=== PATIENT | female | born 1980 | race Hispanic/Latino ===

== ENCOUNTER → 2021-04-13 10:19 | Outpatient (CLI) | payer OTHER, SELFPAY ==
--- NOTE | ~2021-04-13 | MM_ITS ---
EXAMINATION: MM screening aaron BI w michael HISTORY: Screening TECHNIQUE: Craniocaudal and mediolateral oblique 3-D tomosynthesis images were obtained and synthetic 2-D images were generated. CAD analysis was submitted and interpreted. COMPARISON: No prior mammogram is available for comparison at this institution. BREAST PARENCHYMAL COMPOSITION: The breasts are heterogeneously dense, which may obscure small masses . FINDINGS: There is focal asymmetry in the lower inner quadrant of the left breast. There are no suspi cious masses, calcifications or architectural distortion in the left breast to suggest malignancy. IMPRESSION: 1. Focal left breast asymmetry, lower inner quadrant. 2. Additional mammographic views and possible breast ultrasound are recommended. BI-RADS Category 0: Incomplete: Needs additional imaging evaluation. Reviewed, dictated and finalized at location A. IMPRESSION: 1. Focal left breast asymmetry, lower inner quadrant. 2. Additional mammographic views and possible breast ultrasound are recommended . BI-RADS Category 0: Incomplete: Needs additional imaging evaluation.
== END ==
PROVIDERS: Visit Provider Obstetrics & Gynecology
DX: Z12.31 Encounter for screening mammogram for malignant neoplasm of breast (principal); R92.8 Other abnormal and inconclusive findings on diagnostic imaging of breast
CPT/HCPCS: 77063; 77067

== ENCOUNTER → 2021-05-12 09:35 | Outpatient (CLI) | payer OTHER, SELFPAY ==
--- NOTE | ~2021-05-12 | MMUS_ITS ---
EXAMINATION: MM diagnostic aaron LT w michael, US breast LT complete HISTORY: Focal left breast asymmetry reported in lower inner quadrant of left breast on 04/2021 scre ening mammogram TECHNIQUE: Additional 3-D tomosynthesis images of the left breast were performed and synthetic 2-D im ages were generated. CAD analysis was submitted and interpreted. High resolution complete left breast ultrasound including all 4 quadrants and subareolar area was performed. COMPARISON: 04/13/2021 bilateral screening mammogram 03/02/2011 bilateral diagnostic mammogram and left breast ultrasound FINDINGS: MAMMOGRAPHIC FINDINGS: There is architectural distortion in the upper mid to outer anterior left breast (ML Tomosynthesis im age 27/63). There is asymmetric density in the mid inner left breast (craniocaudal Tomosynthesis image 31/60). ULTRASOUND: 12:00 2 cm from nipple: There is an irregular parallel oval hypoechoic mass measuring 5.9 x 3.6 x 6.4 mm, with no posterior shadowing, with minimal adjacent vascularity on color flow imaging. Ultrasound -guided biopsy is recommended. 2:00 3 cm from nipple: 2.6 x 3.8 x 4.2 mm cyst 8:00 5 cm from nipple: Parallel 3.3 x 2 x 3.1 mm hypoechoic lesion without internal vascularity or po sterior shadowing 9:00 3 cm from nipple: 2.2 x 3.4 mm mildly irregular incompletely circumscribed hypoechoic lesion; ul trasound-guided biopsy is recommended 11:00 1 cm from nipple: Similar 3.5 x 3.9 mm incompletely circumscribed irregular hypoechoic lesion; ultrasound-guided biopsy is recommended. None of the above lesions were identified on 03/02/2011 complete left breast ultrasound examination. IMPRESSION: 1. 3 indeterminate hypoechoic lesions: 12:00 2 cm from nipple, 9:00 3 cm from nipple at 11:00 1 cm fr om nipple 2. Ultrasound-guided biopsy of these 3 lesions is recommended. BI-RADS category 4, suspicious findings. Kayleen, Assistant Professor Of Anthropology to Dr. Nicko Luong, was notified by telephone by Dr. Ham of the findings an d ultrasound guided biopsy recommendation on 05/12/2021 at 1038 hours. Reviewed, dictated and finalized at location A. R INSPECTOR IMPRESSION: 1. 3 indeterminate hypoechoic lesions: 12:00 2 cm from nipple, 9:00 3 cm from n ipple at 11:00 1 cm from nipple 2. Ultrasound-guided biopsy of these 3 lesions is recommended. BI-RADS category 4, suspicious findings. Kayleen, Assistant Professor Of Anthropology to Dr. Nicko Luong, was notified by telephone by Dr. Shailesh ignacio of the findings and ultrasound guided biopsy recommendation on 05/12/2021 at 1038 hours.
== END ==
PROVIDERS: Visit Provider Obstetrics & Gynecology
DX: R92.8 Other abnormal and inconclusive findings on diagnostic imaging of breast (principal)
CPT/HCPCS: 76641; 77061; 77065; G0279

== ENCOUNTER 2021-06-01 10:03 | Outpatient (CLI) | payer OTHER, SELFPAY ==
--- NOTE | ~2021-06-01 | MMUS_ITS ---
EXAMINATION: US breast biopsy LT w image, MM post biopsy invasive LT DATE: 06/01/2021 11:12 (accession [id number]), 06/01/2021 11:15 (accession [id number]) INDICATION: Indeterminate left breast masses at diagnostic evaluation. Ultrasound-guided core biopsy is requested to evaluate for malignancy. TECHNIQUE AND FINDINGS: Real-time scanning, the mass is recommended for biopsy at the 9:00 and 11:00 locations are suggestive of cysts. There was decided to biopsy the mass at the 12:00 location. The risks and potential benefi ts of the procedure were discussed with the patient including bleeding and. A time out was performed. The skin of the left breast was prepared and draped in usual sterile fashion. 1% lidocaine was used for superficial anesthesia. 1% lidocaine with epinephrine was used for deep anesthesia. A vacuum-assisted biopsy gun needle was advanced through to the outer edge of the region of interest from a lateral approach utilizing sonographic guidance. A total of three tissue core samples were obt ained through the lesion. A tissue marker clip was then placed at the biopsy site. Hemostasis was ach ieved. A sterile bandage was applied. The patient tolerated procedure well and there was no evidence of immediate complication. The patient was given verbal instructions to return to the Emergency Department in the event of severe breast pa in or rapid breast enlargement. A two view left breast mammogram was obtained to document tissue hilary er clip placement. IMPRESSION: 1. Successful ultrasound-guided vacuum-assisted biopsy of left breast mass with tissue marker placeme nt. 2. Follow-up targeted left breast ultrasound in six months is recommended for the mass is identified at the 9:00 and 11:00 locations. Reviewed, dictated and finalized at location A. NCIAL OPERATIONS CLERK IMPRESSION: 1. Successful ultrasound-guided vacuum-assisted biopsy of left breast mass with tissue marker placement. 2. Follow-up targeted left breast ultrasound in six months is recommended for t he mass is identified at the 9:00 and 11:00 locations.
== END 2021-06-01 10:04 | disposition home or self-care (01) ==
PROVIDERS: Visit Provider Surgery
DX: R92.8 Other abnormal and inconclusive findings on diagnostic imaging of breast (principal)
CPT/HCPCS: 19083; 88305; 88342; A4648

== ENCOUNTER → 2022-04-19 10:28 | Outpatient (CLI) | payer OTHER, SELFPAY ==
--- NOTE | ~2022-04-19 | MM_ITS ---
EXAMINATION: MM screening aaron BI w michael HISTORY: Screening mammogram TECHNIQUE: Craniocaudal and mediolateral oblique 3-D tomosynthesis images were obtained and synthetic 2-D images were generated. CAD analysis was submitted and interpreted. COMPARISON: 06/01/2021 left ultrasound guided breast biopsy 06/08/2021 diagnostic left mammogram and complete left breast ultrasound 04/2021 bilateral screening mammogram 03/02/2011 bilateral diagnostic mammography and left breast ultrasound BREAST PARENCHYMAL COMPOSITION: The breasts are heterogeneously dense, which may obscure small masses . FINDINGS: Stable fibroglandular asymmetry since 03/02/2011. Biopsy marker on the left; history of recent benign left breast biopsy. There is no evidence of suspicious mass, calcification, or architectural distortion to suggest malig augie in either breast. There has been no suspicious interval change. IMPRESSION: 1. No mammographic evidence of malignancy. 2. Recommend routine screening mammography in one year. BIRADS Category 2: Benign Reviewed, dictated and finalized at location A. NUE CYCLE SPECIALIST
== END ==
PROVIDERS: PCP Obstetrics & Gynecology; Visit Provider Obstetrics & Gynecology
DX: Z12.31 Encounter for screening mammogram for malignant neoplasm of breast (principal)
CPT/HCPCS: 77063; 77067

== ENCOUNTER 2024-05-11 13:27 | Outpatient (CLI) | payer OTHER, SELFPAY ==
--- NOTE | ~2024-05-11 | CT_ITS ---
EXAMINATION: CT soft tissue neck wo con DATE: 05/11/2024 13:44 INDICATION: Dysphagia, unspecified. TECHNIQUE: Computed tomography (CT) of the neck was performed without intravenous contrast. Automated exposure control and iterative reconstruction technique were employed. The dose-length product was 3 48.42 mGy-cm. COMPARISON: None FINDINGS: There are no pathologically enlarged lymph nodes. There is a right posterior tracheal diver ticulum. The thyroid demonstrates heterogeneous attenuation. There is mild cervical spondylosis. IMPRESSION: 1. No etiology for the patient's symptoms. Reviewed, dictated and finalized at location A. FIREMAN
== END 2024-05-11 13:28 | disposition home or self-care (01) ==
LOC: MICIMG 13:28
PROVIDERS: PCP Nurse Practitioner Family; Visit Provider Nurse Practitioner Family
DX: R13.10 Dysphagia, unspecified (principal)
CPT/HCPCS: 70490

== ENCOUNTER 2024-05-11 13:28 | Outpatient (CLI) | payer OTHER, SELFPAY ==
--- NOTE | ~2024-05-11 | MM_ITS ---
EXAMINATION: MM screening aaron BI w michael HISTORY: Screening TECHNIQUE: Craniocaudal and mediolateral oblique 3-D tomosynthesis images were obtained and synthetic 2-D images were generated. CAD analysis was submitted and interpreted. COMPARISON: Comparison to multiple prior studies sequentially, with oldest reviewed study dated 09/2020. BREAST PARENCHYMAL COMPOSITION: Dense: The breasts are heterogeneously dense, which may obscure small masses FINDINGS: There is a developing asymmetry laterally in the right breast on CC view. There is a radiol ucent mass which is new in the lower inner quadrant of the left breast, posterior third. IMPRESSION: 1. Developing right breast asymmetry and left breast mass. 2. Additional mammographic views and possible breast ultrasound are recommended. BI-RADS Category 0: Incomplete: Needs additional imaging evaluation. Reviewed, dictated and finalized at location B. EDUCATOR IMPRESSION: 1. Developing right breast asymmetry and left breast mass. 2. Additional mammographic views and possible breast ultrasound are recommended . BI-RADS Category 0: Incomplete: Needs additional imaging evaluation.
== END 2024-05-11 13:29 | disposition home or self-care (01) ==
LOC: MICIMG 13:29
PROVIDERS: PCP Obstetrics & Gynecology; Visit Provider Obstetrics & Gynecology
DX: Z12.31 Encounter for screening mammogram for malignant neoplasm of breast (principal); N64.89 Other specified disorders of breast
CPT/HCPCS: 77063; 77067

== ENCOUNTER 2024-08-28 08:47 | Outpatient (CLI) | payer OTHER, SELFPAY ==
--- NOTE | ~2024-08-28 | MMUS_ITS ---
EXAMINATION: MM diagnostic aaron BI w michael, US breast BI complete HISTORY: Follow-up breast asymmetries TECHNIQUE: Additional 3-D tomosynthesis images of the breasts were performed and synthetic 2-D images were generated. CAD analysis was submitted and interpreted. High resolution bilateral complete breas t ultrasound was performed. COMPARISON: Comparison to multiple prior studies sequentially, with oldest reviewed study dated 09/2020. BREAST PARENCHYMAL COMPOSITION: Dense: The breasts are heterogeneously dense, which may obscure small masses FINDINGS: MAMMOGRAPHIC FINDINGS: Bilateral breast asymmetries compress with spot views, compatible with superimposed fibroglandular ti ssue. No discrete mass or architectural distortion. There are no suspicious calcifications. ULTRASOUND: Complete US of all 4 quadrants of the breast/s and retroareolar region was reviewed. Right breast: Normal heterogeneous echotexture without focal mass. Left breast: At 12:00 near the nipple there is a 7 mm cyst. At 1:00, 3 cm from the nipple there is a 4 mm cyst. At 2:00, 3 cm from the nipple there is an 8 mm cyst. At 2:00, 6 cm from the nipple there i s a 6 mm cyst. IMPRESSION: 1. No evidence for malignancy in either breast. Benign findings. 2. Routine yearly screening mammogram and regular clinical breast examination are recommended. BI-RADS Category 2: Benign finding(s). Reviewed, dictated and finalized at location B. IMPRESSION: 1. No evidence for malignancy in either breast. Benign findings. 2. Routine yearly screening mammogram and regular clinical breast examination a re recommended. BI-RADS Category 2: Benign finding(s).
== END 2024-08-28 08:48 | disposition home or self-care (01) ==
PROVIDERS: PCP Nurse Practitioner Family; Visit Provider Obstetrics & Gynecology
DX: R92.8 Other abnormal and inconclusive findings on diagnostic imaging of breast (principal)
CPT/HCPCS: 76641; 77062; 77066; G0279